=== PATIENT | male | born 1965 | race Hispanic/Latino ===

== ENCOUNTER 2020-10-18 17:50 | Inpatient (IN) | payer OTHER, SELFPAY ==
[~2020-10-18] VITALS: Ht 205.7 cm; Wt 86.2 kg
[2020-10-18] MEDS ORDERED: ACETAMINOPHEN 500 MG TABLET ONE (18:23)
[2020-10-18] MEDS ORDERED: BENZONATATE 100 MG CAPSULE PO ONE (18:31)
[2020-10-18 18:52] LABS: ABG BASE EXCESS -1.3 mmol/L (-2.0-3.0); ABG HCO3 23.3 mmol/L (21.0-28.0); ABG OXYGEN SATURATION 83.4 % (95.0-99.0); ABG PCO2 39 mmHg (35-48)
[2020-10-18 19:10] LABS: BASOPHILS % (AUTO) 0.5 % (0.0-5.0); EOSINOPHILS % (AUTO) 0.2 % (0.0-8.0); HEMATOCRIT 45.1 % (42-54); LYMPHOCYTES % (AUTO) 19.6 % (21.0-51.0); MEAN CORPUSCULAR HGB CONC 34.6 g/dL (32.0-36.0); MEAN CORPUSCULAR VOLUME 86.7 fL (79-99); MONOCYTES % (AUTO) 8.6 % (3.0-13.0); NEUTROPHILS % (AUTO) 70.4 % (40.0-77.0); PLATELET COUNT (AUTO) 208 K/uL (130-400); RED CELL DISTRIBUTION WIDTH 13.5 % (11.0-15.5); WHITE BLOOD COUNT (AUTO) 5.9 K/uL (4.8-10.8)
[2020-10-18 19:18] LABS: CARBON DIOXIDE 25 mmol/L (21-32); CHLORIDE 100 mmol/L (101-111); CREATININE 1.3 mg/dL (0.5-1.5); GLOMERULAR FILTR. RATE CALC 60 mL/min (>60); GLUCOSE,RANDOM 107 mg/dL (70-105); POTASSIUM 3.7 mmol/L (3.5-5.1); SODIUM SERUM 136 mmol/L (136-145); UREA NITROGEN, BLOOD 19 mg/dL (7-18)
[2020-10-18 19:24] LABS: INR 1.02 (0.85-1.15); PROTHROMBIN TIME 11.1 SEC (9.6-11.6)
[2020-10-18 19:25] LABS: PARTIAL THROMBOPLASTIN TIME 34.5 SEC (26.3-35.5)
[2020-10-18 19:29] LABS: ALANINE AMINOTRANSFERASE 51 U/L (12-78); ALBUMIN 3.4 g/dL (3.5-5.0); ASPARTATE AMINOTRANSFERASE 54 U/L (10-37); BILIRUBIN,TOTAL 0.7 mg/dL (0.2-1.0); CREATINE KINASE, TOTAL 246 U/L (21-232); MYOGLOBIN 128 ng/mL (10-92); TOTAL PROTEIN, SERUM 7.7 g/dL (6.0-8.3); TROPONIN I < 0.04 ng/mL (0.00-0.06)
[2020-10-18 19:35] LABS: B-TYPE NATRIURETIC PEPTIDE 13 pg/mL (0-100)
[2020-10-18] MEDS ORDERED: DEXAMETHASONE SOD PHOSPHATE 10MG/ML 1ML VIAL ONE (21:01)
[2020-10-18] MEDS ORDERED: ASPIRIN 325 MG TABLET ONE (21:01)
[2020-10-18] MEDS ORDERED: CEFTRIAXONE 1G VIAL ONE (21:02)
[2020-10-18] MEDS ORDERED: AZITHROMYCIN 250 MG TABLET PO ONE (21:02)
[2020-10-18 21:10] LABS: APPEARANCE,URINE Clear (CLEAR); BILIRUBIN,URINE Moderate (NEGATIVE); COLOR,URINE Dark Yellow (YELLOW); GLUCOSE, URINE (UA) Negative (NEGATIVE); KETONES,URINE 15 mg/dL (NEGATIVE); LEUKOCYTE ESTERASE ,URINE Negative (NEGATIVE); NITRATE,URINE Negative (NEGATIVE); OCCULT BLOOD,URINE Negative (NEGATIVE); PROTEIN,URINE POS 2+ mg/dL (NEGATIVE)
[2020-10-18] MEDS ORDERED: ONDANSETRON 4MG INJ IV PRN (21:15)
[2020-10-18] MEDS ORDERED: NITROGLYCERIN 0.4 MG SL TAB SL PRN (21:15)
[2020-10-18] MEDS ORDERED: ERGOCALCIFEROL (VITAMIN D2) 50,000 UNIT CAPSULE PO ONE (21:15)
[2020-10-18] MEDS ORDERED: ACETAMINOPHEN 325 MG TAB PO PRN ×2 (21:15)
[2020-10-18] MEDS ORDERED: 0.9%NACL 1000ML 1,000 ML IV SCH (21:15)
[2020-10-18 21:19] LABS: RBC,URINE 0-1 /HPF (0-1)
[2020-10-18 21:20] LABS: BACTERIA,URINE Few /HPF (None Seen); MUCUS,URINE Few LPF (None Seen); SQUAMOUS EPITHELIAL CELL,UR Rare /HPF (0-2)
[2020-10-18 21:30] LABS: CRP QUANTITATIVE 40.4 mg/L (0.00-9.0)
[2020-10-18] MEDS: ALBUTEROL INHALER 90MCG/INH IH SCH (21:30)
[2020-10-18 23:33] LABS: CREATINE KINASE, TOTAL 284 U/L (21-232); MYOGLOBIN 129 ng/mL (10-92); TROPONIN I < 0.04 ng/mL (0.00-0.06)
[2020-10-19] VITALS (7 sets, daily range): BP systolic 112–135; BP diastolic 71–81
[2020-10-19] MEDS: ALBUTEROL INHALER 90MCG/INH IH SCH ×6 (01:30→21:29)
[2020-10-19] MEDS ORDERED: ERGOCALCIFEROL (VITAMIN D2) 50,000 UNIT CAPSULE ONE (06:25)
[2020-10-19 06:36] LABS: BASOPHILS % (AUTO) 0.3 % (0.0-5.0); HEMATOCRIT 44.3 % (42-54); LYMPHOCYTES % (AUTO) 16.9 % (21.0-51.0); MEAN CORPUSCULAR HEMOGLOBIN 28.6 pg (27.0-33.0); MEAN CORPUSCULAR VOLUME 86.9 fL (79-99); MONOCYTES % (AUTO) 4.4 % (3.0-13.0); NEUTROPHILS % (AUTO) 77.8 % (40.0-77.0); PLATELET COUNT (AUTO) 194 K/uL (130-400); RED CELL DISTRIBUTION WIDTH 13.4 % (11.0-15.5); WHITE BLOOD COUNT (AUTO) 3.6 K/uL (4.8-10.8)
[2020-10-19 07:01] LABS: ALBUMIN 3.1 g/dL (3.5-5.0); BILIRUBIN,TOTAL 0.5 mg/dL (0.2-1.0); CREATININE 1.2 mg/dL (0.5-1.5); CRP QUANTITATIVE 30.6 mg/L (0.00-9.0); POTASSIUM 4.7 mmol/L (3.5-5.1); TOTAL PROTEIN, SERUM 7.1 g/dL (6.0-8.3)
[2020-10-19] MEDS: ACETYLCYSTEINE 600 MG CAPSULE PO SCH ×2 (08:17→20:55)
[2020-10-19] MEDS: ASCORBIC ACID 500 MG TAB PO SCH (08:18)
[2020-10-19] MEDS: FAMOTIDINE 20MG TAB PO SCH ×2 (08:18→20:55)
[2020-10-19] MEDS: ENOXAPARIN SODIUM 40 MG/0.4 ML SYRINGE SQ SCH (08:19)
[2020-10-19] MEDS: ZINC SULFATE 220 CAPSULE PO SCH (08:19)
[2020-10-19] MEDS ORDERED: DEXAMETHASONE SOD PHOSPHATE 4 MG/ML 1ML VIAL IVP SCH (09:00)
[2020-10-19] MEDS ORDERED: PHARMACY COMMUNICATION**REMDESIVIR ORDER MISC SCH (18:00)
[2020-10-19] MEDS ORDERED: COMPOUND IV REFRIGERATED 1 EACH IVSOLN MISC PRN (18:30)
[2020-10-19] MEDS ORDERED: REMDESIVIR (EUA) 520 200 MG in 0.9% NACL 250ML 250 ML IV SCH (20:00)
[2020-10-19] MEDS: DEXAMETHASONE SOD PHOSPHATE 4 MG/ML 1ML VIAL IVP SCH (20:57)
[2020-10-19] MEDS ORDERED: AZITHROMYCIN 500MG+NS 250ML 250 ML IV SCH (21:00)
[2020-10-19] MEDS ORDERED: CEFTRIAXONE 1G VIAL IVP SCH (21:00)
[2020-10-20] MEDS: ALBUTEROL INHALER 90MCG/INH IH SCH ×6 (01:30→20:57)
[2020-10-20 03:00] VITALS: BP 111/70
[2020-10-20 05:15] LABS: BASOPHILS % (AUTO) 0.1 % (0.0-5.0); HEMATOCRIT 46.1 % (42-54); LYMPHOCYTES % (AUTO) 8.9 % (21.0-51.0); MEAN CORPUSCULAR HEMOGLOBIN 28.9 pg (27.0-33.0); MEAN CORPUSCULAR HGB CONC 33.2 g/dL (32.0-36.0); MONOCYTES % (AUTO) 7.3 % (3.0-13.0); NEUTROPHILS % (AUTO) 83.1 % (40.0-77.0); PLATELET COUNT (AUTO) 223 K/uL (130-400); RED CELL DISTRIBUTION WIDTH 13.4 % (11.0-15.5); WHITE BLOOD COUNT (AUTO) 8.7 K/uL (4.8-10.8)
[2020-10-20 05:36] LABS: BILIRUBIN,TOTAL 0.4 mg/dL (0.2-1.0); CRP QUANTITATIVE 17.9 mg/L (0.00-9.0); TOTAL PROTEIN, SERUM 7.1 g/dL (6.0-8.3)
[2020-10-20] MEDS: REMDESIVIR LABS MISC SCH (06:00)
[2020-10-20 06:42] LABS: BILIRUBIN,DIRECT 0.1 mg/dL (0.0-0.3); BILIRUBIN,TOTAL 0.4 mg/dL (0.2-1.0)
[2020-10-20 08:00] VITALS: BP 114/71
[2020-10-20] MEDS: ACETYLCYSTEINE 600 MG CAPSULE PO SCH (10:30)
[2020-10-20] MEDS: ZINC SULFATE 220 CAPSULE PO SCH (10:34)
[2020-10-20] MEDS: ASCORBIC ACID 500 MG TAB PO SCH (10:34)
[2020-10-20] MEDS: FAMOTIDINE 20MG TAB PO SCH ×2 (10:34→20:05)
[2020-10-20] MEDS: ENOXAPARIN SODIUM 40 MG/0.4 ML SYRINGE SQ SCH (10:35)
[2020-10-20] MEDS ORDERED: GUAIFENESIN-DM 200/20 MG 10 ML PO PRN (11:45)
[2020-10-20 12:00] VITALS: BP 119/80
[2020-10-20 16:32] VITALS: BP 116/72
[2020-10-20 19:00] VITALS: BP 105/75
[2020-10-20] MEDS: REMDESIVIR (EUA) 520 100 MG in 0.9% NACL 250ML 250 ML IV SCH (20:05)
[2020-10-20] MEDS: DEXAMETHASONE SOD PHOSPHATE 4 MG/ML 1ML VIAL IVP SCH (20:05)
[2020-10-20] MEDS: GUAIFENESIN-CODEINE 5 ML SYRUP PO PRN (20:55)
[2020-10-20 23:00] VITALS: BP 115/77
[2020-10-21] MEDS: ALBUTEROL INHALER 90MCG/INH IH SCH ×6 (01:20→20:53)
[2020-10-21 03:00] VITALS: BP 113/70
[2020-10-21 04:57] LABS: BASOPHILS % (AUTO) 0.1 % (0.0-5.0); MEAN CORPUSCULAR HEMOGLOBIN 29.4 pg (27.0-33.0); MEAN CORPUSCULAR HGB CONC 33.7 g/dL (32.0-36.0); MEAN CORPUSCULAR VOLUME 87.2 fL (79-99); MONOCYTES % (AUTO) 9.5 % (3.0-13.0); NEUTROPHILS % (AUTO) 78.7 % (40.0-77.0); PLATELET COUNT (AUTO) 221 K/uL (130-400); RED BLOOD CELL COUNT(AUTO) 4.93 MIL/uL (4.50-6.20); RED CELL DISTRIBUTION WIDTH 13.7 % (11.0-15.5); WHITE BLOOD COUNT (AUTO) 6.8 K/uL (4.8-10.8)
[2020-10-21] MEDS: GUAIFENESIN-CODEINE 5 ML SYRUP PO PRN ×5 (05:03→21:02)
[2020-10-21 05:11] LABS: ALBUMIN 2.9 g/dL (3.5-5.0); BILIRUBIN,TOTAL 0.4 mg/dL (0.2-1.0); CREATININE 0.9 mg/dL (0.5-1.5); CRP QUANTITATIVE 21.9 mg/L (0.00-9.0); POTASSIUM 4.3 mmol/L (3.5-5.1); TOTAL PROTEIN, SERUM 6.8 g/dL (6.0-8.3)
[2020-10-21] MEDS: REMDESIVIR LABS MISC SCH (06:00)
[2020-10-21 07:00] VITALS: BP 121/62
[2020-10-21] MEDS: ASCORBIC ACID 500 MG TAB PO SCH (08:38)
[2020-10-21] MEDS: ZINC SULFATE 220 CAPSULE PO SCH (08:38)
[2020-10-21] MEDS: ENOXAPARIN SODIUM 40 MG/0.4 ML SYRINGE SQ SCH (08:39)
[2020-10-21] MEDS: FAMOTIDINE 20MG TAB PO SCH ×2 (08:39→20:52)
[2020-10-21] MEDS: BENZONATATE 100 MG CAPSULE PO SCH ×2 (10:44→18:10)
[2020-10-21 11:00] VITALS: BP 116/75
[2020-10-21 16:00] VITALS: BP 115/72
[2020-10-21 19:40] VITALS: BP 114/70
[2020-10-21] MEDS: REMDESIVIR (EUA) 520 100 MG in 0.9% NACL 250ML 250 ML IV SCH (20:52)
[2020-10-21] MEDS: DEXAMETHASONE SOD PHOSPHATE 4 MG/ML 1ML VIAL IVP SCH (20:52)
[2020-10-21 23:58] VITALS: BP 103/58
[2020-10-22] MEDS: ALBUTEROL INHALER 90MCG/INH IH SCH ×6 (01:41→18:06)
[2020-10-22] MEDS: BENZONATATE 100 MG CAPSULE PO SCH ×3 (02:28→18:06)
[2020-10-22 03:13] VITALS: BP 121/60
[2020-10-22] MEDS: REMDESIVIR LABS MISC SCH (06:00)
[2020-10-22 07:00] VITALS: BP 121/73
[2020-10-22] MEDS: FAMOTIDINE 20MG TAB PO SCH ×2 (08:53→20:16)
[2020-10-22] MEDS: ZINC SULFATE 220 CAPSULE PO SCH (08:53)
[2020-10-22] MEDS: ASCORBIC ACID 500 MG TAB PO SCH (08:53)
[2020-10-22] MEDS: ENOXAPARIN SODIUM 40 MG/0.4 ML SYRINGE SQ SCH (08:53)
[2020-10-22 11:00] VITALS: BP 127/75
[2020-10-22 16:00] VITALS: BP 120/73
[2020-10-22 19:21] VITALS: BP 111/70
[2020-10-22] MEDS: REMDESIVIR (EUA) 520 100 MG in 0.9% NACL 250ML 250 ML IV SCH (20:16)
[2020-10-22] MEDS: DEXAMETHASONE SOD PHOSPHATE 4 MG/ML 1ML VIAL IVP SCH (20:17)
[2020-10-22 23:23] VITALS: BP 99/52
[2020-10-23] MEDS: BENZONATATE 100 MG CAPSULE PO SCH ×3 (03:24→18:28)
[2020-10-23 03:33] VITALS: BP 116/76
[2020-10-23 05:05] LABS: ALBUMIN 2.9 g/dL (3.5-5.0); BILIRUBIN,DIRECT 0.2 mg/dL (0.0-0.3); BILIRUBIN,TOTAL 0.6 mg/dL (0.2-1.0); CRP QUANTITATIVE 18.1 mg/L (0.00-9.0); TOTAL PROTEIN, SERUM 6.9 g/dL (6.0-8.3)
[2020-10-23] MEDS: REMDESIVIR LABS MISC SCH (06:00)
[2020-10-23 06:13] LABS: BASOPHILS % (AUTO) 0.1 % (0.0-5.0); HEMATOCRIT 44.4 % (42-54); LYMPHOCYTES % (AUTO) 11.4 % (21.0-51.0); MEAN CORPUSCULAR HEMOGLOBIN 29.2 pg (27.0-33.0); MEAN CORPUSCULAR HGB CONC 33.6 g/dL (32.0-36.0); MEAN CORPUSCULAR VOLUME 87.1 fL (79-99); MONOCYTES % (AUTO) 6.5 % (3.0-13.0); NEUTROPHILS % (AUTO) 81.3 % (40.0-77.0); PLATELET COUNT (AUTO) 282 K/uL (130-400); RED CELL DISTRIBUTION WIDTH 13.6 % (11.0-15.5); WHITE BLOOD COUNT (AUTO) 7.7 K/uL (4.8-10.8)
[2020-10-23 06:20] LABS: POTASSIUM 4.6 mmol/L (3.5-5.1)
[2020-10-23 08:35] VITALS: BP 130/86
[2020-10-23] MEDS: ENOXAPARIN SODIUM 40 MG/0.4 ML SYRINGE SQ SCH (09:07)
[2020-10-23] MEDS: ASCORBIC ACID 500 MG TAB PO SCH (09:07)
[2020-10-23] MEDS: FAMOTIDINE 20MG TAB PO SCH (09:08)
[2020-10-23] MEDS: ZINC SULFATE 220 CAPSULE PO SCH (09:08)
[2020-10-23] MEDS: ALBUTEROL INHALER 90MCG/INH IH SCH ×5 (09:08→20:25)
[2020-10-23 12:08] VITALS: BP 133/82
[2020-10-23 16:00] VITALS: BP 139/75
[2020-10-23 20:00] VITALS: BP 121/76
[2020-10-23] MEDS: REMDESIVIR (EUA) 520 100 MG in 0.9% NACL 250ML 250 ML IV SCH (20:06)
[2020-10-23] MEDS ORDERED: DEXA6TAB PO (21:39)
[2020-10-23] MEDS ORDERED: AEC81 PO (21:39)
[2020-10-23 23:30] VITALS: BP 131/78
[2020-10-24] MEDS: ALBUTEROL INHALER 90MCG/INH IH SCH ×3 (01:56→08:39)
[2020-10-24] MEDS: BENZONATATE 100 MG CAPSULE PO SCH ×2 (02:00→10:26)
[2020-10-24 04:34] VITALS: BP 132/83
[2020-10-24 04:52] LABS: BASOPHILS % (AUTO) 0.5 % (0.0-5.0); EOSINOPHILS % (AUTO) 0.8 % (0.0-8.0); LYMPHOCYTES % (AUTO) 22.6 % (21.0-51.0); MEAN CORPUSCULAR HEMOGLOBIN 29.3 pg (27.0-33.0); MEAN CORPUSCULAR HGB CONC 33.8 g/dL (32.0-36.0); MEAN CORPUSCULAR VOLUME 86.6 fL (79-99); MONOCYTES % (AUTO) 11.2 % (3.0-13.0); NEUTROPHILS % (AUTO) 62.9 % (40.0-77.0); PLATELET COUNT (AUTO) 274 K/uL (130-400); RED BLOOD CELL COUNT(AUTO) 4.85 MIL/uL (4.50-6.20); RED CELL DISTRIBUTION WIDTH 13.5 % (11.0-15.5); WHITE BLOOD COUNT (AUTO) 8.4 K/uL (4.8-10.8)
[2020-10-24 05:07] LABS: ALBUMIN 2.7 g/dL (3.5-5.0); BILIRUBIN,TOTAL 0.6 mg/dL (0.2-1.0); POTASSIUM 3.8 mmol/L (3.5-5.1); TOTAL PROTEIN, SERUM 6.1 g/dL (6.0-8.3)
[2020-10-24 05:13] LABS: HEMOGLOBIN A1C 6.2 % (4.0-6.0)
[2020-10-24] MEDS: REMDESIVIR LABS MISC SCH (06:00)
[2020-10-24 08:15] VITALS: BP 133/85
[2020-10-24] MEDS ORDERED: DEXAMETHASONE 4 MG TAB ONE (08:37)
[2020-10-24] MEDS: ENOXAPARIN SODIUM 40 MG/0.4 ML SYRINGE SQ SCH (08:38)
[2020-10-24] MEDS ORDERED: DEXAMETHASONE 4 MG TAB PO SCH (09:00)
== END 2020-10-24 10:38 | disposition home or self-care (01) | DRG 177 ==
LOC: EDH 17:50 → EDHIP 17:51 → 2AH 10-19 01:28
PROVIDERS: ADMIT Internal Medicine; ATTEND Internal Medicine
PROC: XW033E5 Introduction of Remdesivir Anti-infective into Peripheral Vein, Percutaneous Approach, New Technology Group 5 (ICD-10-PCS; principal; 2020-10-19)
DX: U07.1 COVID-19 (principal); A41.89 Other specified sepsis; J96.01 Acute respiratory failure with hypoxia; J12.82 Pneumonia due to coronavirus disease 2019; R65.20 Severe sepsis without septic shock; D68.59 Other primary thrombophilia; M62.82 Rhabdomyolysis; D72.810 Lymphocytopenia; E11.9 Type 2 diabetes mellitus without complications; I10 Essential (primary) hypertension; E66.9 Obesity, unspecified; Z68.33 Body mass index [BMI] 33.0-33.9, adult; Z83.3 Family history of diabetes mellitus
CPT/HCPCS: 36415; 36600; 71045; 71250; 80048; 80053; 80076; 81001; 82247; 82248; 82550; 82728; 82803; 83036; 83605; 83615; 83874; 83880; 84145; 84484; 85025; 85378; 85610; 85730; 86140; 86900; 86901; 87040; 87088; 87426; 87449; 93005; 93970; 94760; G0378; J0456; J0696; J1100; J1650; J2405; J7030; J7050; J8540